=== PATIENT | female | born 1980 | race African-American/Black ===

== ENCOUNTER 2020-04-09 08:06 | Emergency (ER) | payer SELFPAY ==
[~2020-04-09] VITALS: Ht 157.5 cm; Wt 71.7 kg
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
--- NOTE | 2020-04-09 08:28 | NUR ---
PICKED UP BY [facility] VIA WHEELCHAIR FOR XRAY
--- NOTE | 2020-04-09 09:18 | NUR ---
Patient discharged to home in stable condition. Written and verbal after care instructions given. Patient verbalizes understanding of instruction. Provided w excuse from work until 04/12/2020.
[2020-04-09 09:20] VITALS: BP 131/78
[2020-04-09] MEDS ORDERED: KETOROLAC TROMETHAMINE INJ 60 MG/2 ML VIAL IM ONE (09:30)
== END 2020-04-09 09:21 | disposition home or self-care (01) ==
LOC: ER 08:08
DX: S16.1XXA Strain of muscle, fascia and tendon at neck level, initial encounter (principal); V49.49XA Driver injured in collision with other motor vehicles in traffic accident, initial encounter; Y93.89 Activity, other specified; Y92.488 Other paved roadways as the place of occurrence of the external cause; Y99.8 Other external cause status
CPT/HCPCS: 72050-TC; 73030-TC